=== PATIENT | male | born 1970 | race Caucasian/White ===

== ENCOUNTER 2022-06-12 08:10 | Emergency (ER) | payer MEDICAID, SELFPAY ==
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
[2022-06-12 08:23] VITALS: BP 128/89; PULSE 94
[2022-06-12 08:24] VITALS: BP 130/102; PULSE 100; RESP 18; TEMP 36.3; O2SAT 99; BMI 22.0
[2022-06-12 08:30] VITALS: BP 127/85; PULSE 94
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
--- NOTE | 2022-06-12 09:12 | PC.NURSE ---
called radiology to power share images to [facility]
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
--- NOTE | 2022-06-12 09:16 | PC.NURSE ---
Freida.Mckeon rounded on patient
[2022-06-12 09:30] VITALS: BP 116/81; PULSE 91; O2SAT 97
--- NOTE | 2022-06-12 10:24 | PC.NURSE ---
ashley rounding on pt
[2022-06-12 10:30] VITALS: BP 122/74; PULSE 95; RESP 18; O2SAT 96
--- NOTE | 2022-06-12 10:41 | PC.NURSE ---
EMS here to take patient to [facility]
--- NOTE | 2022-06-12 10:55 | PC.NURSE ---
Patient leaving facility with EMS
[2022-06-12 11:00] VITALS: BP 122/74; PULSE 69; RESP 16; TEMP 36.7
== END 2022-06-12 11:34 | disposition short-term general hospital (02) ==
PROVIDERS: Emergency Provider Student in an Organized Health Care Education/Training Program
DX: S42.351B Displaced comminuted fracture of shaft of humerus, right arm, initial encounter for open fracture (principal); F17.210 Nicotine dependence, cigarettes, uncomplicated; V49.50XA Passenger injured in collision with unspecified motor vehicles in traffic accident, initial encounter
CPT/HCPCS: 71045; 73060; 73080; 73090; 90715; 96360; 96365; 96367; 96368; 96372; 96374; 99285

== ENCOUNTER 2023-09-20 09:17 | Emergency (ER) | payer MEDICAID, SELFPAY ==
[2023-09-20 09:18] VITALS: BP 168/112; PULSE 88; RESP 18; TEMP 36.6; O2SAT 97; BMI 24.3
[2023-09-20 09:30] VITALS: BP 162/105; PULSE 78; RESP 18; TEMP 36.6; O2SAT 96
--- NOTE | 2023-09-20 10:11 | PC.NURSE ---
DR WU AT BEDSIDE
[2023-09-20 10:27] LABS: Basophils # 0.1 K/mm3 (0-0.2); Basophils % 0.8 % (0.1-2.0); Eosinophils # 0.3 K/mm3 (0.0-0.4); Hematocrit 41.5 % (42.0-52.0); Hemoglobin 15.1 g/dL (14.1-18.0); Lymphocytes # 2.5 K/mm3 (0.7-4.5); Lymphocytes % 31.5 % (10-50); Mean Corpuscular HGB Conc 36.4 g/dL (31.8-35.4); Mean Corpuscular Hemoglobin 35.9 pg (27.0-31.2); Mean Corpuscular Volume 98.6 fl (80-94); Mean Platelet Volume 7.9 fl (7.4-10.4); Monocytes # 0.5 K/mm3 (0.1-1.0); Monocytes % 6.5 % (1.7-9.3); Neutrophils # 4.5 K/mm3 (1.8-7.8); Neutrophils % 57.2 % (37.0-80.0); Platelet Count 250 K/mm3 (142-424); Red Cell Distribution Width 14.2 % (11.5-17.5); White Blood Count 7.8 K/mm3 (4.8-10.8)
--- NOTE | 2023-09-20 10:27 | PC.NURSE ---
PT TO CT
--- NOTE | 2023-09-20 10:33 | ED_ITS ---
Discharge Plan Disposition Patient Disposition: Left Against Medical Advice Referrals Follow up/Referrals: Provider,Referral, MD [Primary Care Provider] - See instructions Clinical Impressions Clinical Impression: Abscess, neck Instructions Patient Instructions: DI for Skin Abscess Print Language Print Language: Trinidadian Discharge ED Provider: Georgette Cage General Adult HPI General Chief complaint: Skin/Abscess/Foreign Body Stated complaint: knot on neck Time Seen by Provider: 09/20/23 09:30 Mode of Arrival: Ambulatory Source of Information: Patient Limitations: No Limitations Description of Symptoms (Recalled from ER Triage Doc. by RN): PT REPORTS INFECTED HAIR TO LEFT SIDE OF NECK. STATES HE POPPED AREA AND SITE IS SWOLLEN AND PAINFUL History of Present Illness HPI narrative: This patient is a 52-year-old male who denies significant past medical history presenting to the emergency department for evaluation with concern for an area of swelling on the front of his neck. He reports that he had an ingrown hair and popped this area, but since yesterday he has had worsened swelling and has a large lump on the front of his neck. He also states he feels nauseated. He denies any fevers, chest pain, shortness of breath, difficulty swallowing, stridor, or other concerns. Related Data Allergies Allergy/AdvReac Type Severity Reaction Status Date / Time No Known Allergies Allergy Verified 06/12/22 08:29 [facility] Disclaimer: The information contained in this section may have been updated after the patient was seen, as this information can be updated by other users. Social History Smoking Status: Current every day smoker alcohol intake: never current occupational status: employed Travel in the last 8 weeks: None ROS Obtained: Yes All systems reviewed & no additional complaints except as documented Physical Exam General General appearance: alert and in no apparent distress Head Head exam: atraumatic and normocephalic Eye Eye exam: Present normal appearance, PERRL and EOMI ENT ENT exam: Present normal exam, normal oropharynx, mucous membranes moist and normal external ear exam Neck Neck exam: Present full ROM, trachea midline and tenderness (Palpable area of fluctuance on the anterior neck with no significant surrounding erythema or warmth.); Absent meningismus or lymphadenopathy Chest Chest inspection: Present normal inspection and symmetric chest wall rise; Absent tenderness Respiratory Respiratory exam: Present normal lung sounds bilaterally; Absent respiratory distress, wheezes, stridor or accessory muscle use Cardiovascular Cardiovascular exam: Present regular rate and normal rhythm Abdominal Exam Abdominal exam: Present soft; Absent distention, tenderness or guarding Extremities Exam Extremities exam: Present normal inspection, full ROM and normal capillary refill; Absent tenderness or edema Back Exam Back exam: Present normal inspection and full ROM; Absent tenderness Neurological Exam Neurological exam: Present alert, oriented X3, CN II-XII intact and normal gait; Absent motor sensory deficit Psychiatric Psychiatric exam: Present normal affect and normal mood Skin Skin exam: Present warm and dry Medical Decision Making Medical Records Medical records reviewed: Yes I reviewed the patient's medical records. Yuval Inquiry Pt receiving controlled substance: No Vital Signs: 09/20/23 09:18 09/20/23 09:30 09/20/23 11:23 Temperature 97.8 F 97.8 F 0 F L Temperature Source Oral Oral Pulse Rate 78 0 L Pulse Rate [Radial] 88 Respiratory Rate 18 18 0 L Blood Pressure 162/105 H 0/0 L Blood Pressure [Left Arm] 168/112 H Blood Pressure Mean [Left Arm] 130 Blood Pressure Source Manual Cuff/ Auscultation Blood Pressure Source [Left Arm] Automatic Cuff Blood Pressure Position Sitting Blood Pressure Position [Left Arm] Sitting 02 Sat by Pulse Oximetry 97 96 Oxygen Delivery Method Room Air Room Air Lab Data Lab results reviewed: Yes I reviewed the patient's lab results. Lab Results 09/20/23 10:19: WBC 7.8, RBC 4.20 L, Hgb 15.1, Hct 41.5 L, MCV 98.6 H, MCH 35.9 H, MCHC 36.4 H, RDW 14.2, Plt Count 250, MPV 7.9, Neut % (Auto) 57.2, Lymph % (Auto) 31.5, [place] % (Auto) 6.5, Eos % (Auto) 4.0, Baso % (Auto) 0.8, Neut # (Auto) 4.5, Lymph # (Auto) 2.5, [place] # (Auto) 0.5, Eos # (Auto) 0.3, Baso # (Auto) 0.1, Sodium 140, Potassium 3.9, Chloride 110 H, Carbon Dioxide 25, Anion Gap 8.9, BUN 10, Creatinine 0.90, Estimated Creat Clear 103, Estimated GFR 89, Est GFR ( Amer) 108, Glucose 104 H, Calcium 9.8, Total Bilirubin 0.3, AST 21, ALT 18, Alkaline Phosphatase 105, Total Protein 7.0, Albumin 4.1, Globulin 2.9, Albumin/Globulin Ratio 1.4 09/20/23 10:19 09/20/23 10:19 Orders (Tests/Meds): ORDERS Category Date Time Status CT soft tissue neck w con Stat Cat Scan 09/20/23 10:13 Ordered CBC w/Auto Diff [Complete Blood Count Auto Diff] Stat Lab 09/20/23 10:19 Completed CMP [Comprehensive Metabolic Panel] Stat Lab 09/20/23 10:19 Completed Medical Decision Narrative: In summary, this patient is a 52-year-old male presenting to the Emergency Department for evaluation of an area of swelling on the front of his neck. Differential diagnoses considered include but are not limited to abscess, cellulitis, deep space infection. Ruling out the most morbid conditions drove assessment. On exam, the patient is well-appearing. He has no meningismus, significant lymphadenopathy, or other concerns. He does have a palpable area of fluctuance of his anterior/left neck at the level of his thyroid cartilage. Will obtain a CT scan with IV contrast to evaluate for deeper space infection and further assess safety to proceed with simple I&D. Workup included CBC, CMP, CT neck with contrast. Labs were obtained and are reassuring. Ultimately, before CT scan, patient decided that he did not want a CT scan and just wanted his neck lanced. I advised him that the safest option is to proceed with imaging to rule out proximity to any large blood vessels or extension into deep space infection, as there are a lot of important vascular structures in this area. Patient stated that does not necessary and he just wants us to stab it. I advised him that I feel that is high risk without obtaining imaging to further assess the abscess given the proximity to the important vascular structures. I advised that if a vascular structure is injured during procedure, he would be high risk for hemorrhage. He stated that he wants his IV out and wants to leave since we are incompetent. He became very verbally aggressive and chose to leave AGAINST MEDICAL ADVICE after risk versus benefit explained. He was deemed to be of sound mind and had decision making capacity at time of leaving AMA. Critical Care Critical Care Time Critical Care Time: No
[2023-09-20 10:35] LABS: Alanine Aminotransferase 18 U/L (12-78); Albumin Level 4.1 g/dl (3.5-5.0); Albumin/Globulin Ratio 1.4 (1.1-1.8); Alkaline Phosphatase 105 U/L (38-126); Anion Gap 8.9 mEq/L (5-15); Aspartate Amino Transferase 21 U/L (17-59); Bilirubin,Total 0.3 mg/dl (0.2-1.3); Blood Urea Nitrogen 10 mg/dl (9-20); Calcium 9.8 mg/dl (8.4-10.2); Carbon Dioxide 25 mmol/L (22.0-30.0); Chloride 110 mmol/L (98-107); Creatinine Clearance Estimated 103 mL/min (50-200); Estimated Glomerular Filt Rate 89 ml/min (>60); GFR (African American) 108 ML/MIN (>60); Globulin 2.9 g/dL (1.3-3.2); Glucose 104 mg/dl (74-100); Potassium 3.9 mmoL/L (3.5-5.1); Sodium 140 mmol/L (136-145)
--- NOTE | 2023-09-20 11:20 | PC.NURSE ---
PT TO CT
--- NOTE | 2023-09-20 11:22 | HMH.ITSTN ---
pt stated he did not want his CT with contrast and that he wanted his IV taken out and to leave. Relayed information to RN, patient taken back to ER room.
[2023-09-20 11:23] VITALS: BP 0/0; PULSE 0; RESP 0; TEMP -17.7; TEMP 0; O2SAT 0
--- NOTE | 2023-09-20 11:26 | PC.NURSE ---
[employer] REPORTS PT REFUSES CT SCAN, PT FEELS UNNECESSARY. DR WU AT BEDSIDE TO REEVALUATE PT AND READDRESS POC. PT STATES YOU'RE NOT GONNA BE IN MY NECK CUTTING AROUND, I DON'T NEED NO SCAN! DR WU EXPLAINING PROCEDURE AND POC TO PT AGAIN. PT STATES GET THIS IV OUT IM, LEAVING IV REMOVED. AMA FORM SIGNED, PT AMBULATORY OFF UNIT AT THIS TIME
== END 2023-09-20 11:25 | disposition left against medical advice (07) ==
PROVIDERS: Emergency Provider Emergency Medicine
DX: L02.11 Cutaneous abscess of neck (principal); R11.0 Nausea; F17.210 Nicotine dependence, cigarettes, uncomplicated; R45.4 Irritability and anger
CPT/HCPCS: 80053; 85025; 99283

== ENCOUNTER 2023-12-09 02:17 | Emergency (ER) | payer MEDICAID, SELFPAY ==
[2023-12-09] VITALS (10 sets, daily range): BP systolic 101–159; BP diastolic 64–103; PULSE 84–152; RESP 10–26; TEMP 36.6–36.9; O2SAT 95–100; BMI 24.3
--- NOTE | 2023-12-09 02:27 | ECG_ITS ---
APPROVED REPORT Exam: Resting ECG HR:166 bpm ECG Measurements Heart Rate 166 AXES QRSd 104 QRS 82 QT 285 T 68 QTc 376 Conclusion Tachycardia, appears to be sinus however P waves are obscured by baseline artifact, see repeat ECG for improved study and interpretation MODERATE ST DEPRESSION [0.05+ mV ST DEPRESSION] No STEMI Electronically signed by : BELEN RIOS, 12/09/2023 07:14:13
--- NOTE | 2023-12-09 02:31 | CT_ITS ---
PROCEDURE INFORMATION: Exam: CT Cervical Spine Without Contrast Exam date and time: 12/09/2023 2:59 AM Age: 53 years old Clinical indication: Neck pain; Additional info: Neck pain, hit head TECHNIQUE: Imaging protocol: Computed tomography of the cervical spine without contrast. Radiation optimization: All CT scans at this facility use at least one of these dose optimization techniques: automated exposure control; mA and/or kV adjustment per patient size (includes targeted exams where dose is matched to clinical indication); or iterative reconstruction. COMPARISON: CT HEAD/BRAIN WO CON 12/09/2023 2:57 AM FINDINGS: Bones: Suboptimal exam due to motion artifact. There is straightening of the cervical spine lordosis. No spondylolisthesis. Chronic remodeling of the inferior cervical spine vertebral bodies without evidence of vertebral body compression deformity. No evidence of acute displaced fracture. C4-C5 central disc herniation with anterior-posterior measurement of 3 mm. Disc osteophyte complex at C5-C6 and likely also at C6-C7. Degenerative intervertebral disc height loss at C5-C6 and C6-C7. Mild bilateral facet arthropathy. Lungs: Subtle right apical blebs. Soft tissues: Atherosclerotic calcification of the carotid arteries. IMPRESSION: 1. No evidence of acute fracture of the cervical spine. 2. Straightening of the cervical spine lordosis may be related to muscular spasm or patient positioning. 3. Degenerative change of the cervical spine. 4. Atherosclerotic calcification of the carotid arteries.
--- NOTE | 2023-12-09 02:31 | CT_ITS ---
PROCEDURE INFORMATION: Exam: CT Head Without Contrast Exam date and time: 12/09/2023 2:57 AM Age: 53 years old Clinical indication: Pain; Headache; Additional info: Headache, hit head TECHNIQUE: Imaging protocol: Computed tomography of the head without contrast. Radiation optimization: All CT scans at this facility use at least one of these dose optimization techniques: automated exposure control; mA and/or kV adjustment per patient size (includes targeted exams where dose is matched to clinical indication); or iterative reconstruction. COMPARISON: No relevant prior studies available. FINDINGS: Brain: There is a questionable left anterior frontal extra-axial hematoma which may also be related to calvarial streak artifact. No midline shift encephalomalacia of the left parietal lobe and smaller area of encephalomalacia of the dorsal left frontal lobe the vertex suggestive of prior ischemic insults Cerebral ventricles: No ventriculomegaly. Paranasal sinuses: Mucosal thickening of the ethmoid air cells. Small mucous retention cyst of the left maxillary sinus. Mastoid air cells: Visualized mastoid air cells are well aerated. Bones: No acute fracture. Soft tissues: Unremarkable. IMPRESSION: 1. Questionable left anterior frontal extra-axial hematoma which may also be related to calvarial streak artifact. Immediate repeat CT head is recommended. 2. Areas of encephalomalacia of the dorsal left frontal lobe and left parietal lobe consistent with prior chronic infarctions. 3. Chronic sinusitis. Findings were discussed with Dr. Concepcion 12/09/2023 2:29 am.
--- NOTE | 2023-12-09 02:31 | XR_ITS ---
PROCEDURE INFORMATION: Exam: XR Chest Exam date and time: 12/09/2023 2:41 AM Age: 53 years old Clinical indication: Pain; Chest pressure; Additional info: Chest pain TECHNIQUE: Imaging protocol: Radiologic exam of the chest. Views: 1 view. COMPARISON: CR XR CHEST PORTABLE 06/12/2022 9:05 AM FINDINGS: Lungs: Unremarkable. No consolidation. Pleural spaces: Unremarkable. No pleural effusion. No pneumothorax. Heart/Mediastinum: Unremarkable. No cardiomegaly. Bones/joints: Unremarkable. IMPRESSION: No acute findings.
[2023-12-09] MEDS: ASPIRIN 81MG CHEWABLE TABLET 324 MG PO (02:37)
[2023-12-09] MEDS: NITROGLYCERIN 0.4MG SL TABLET 0.4 MG SL (02:38)
[2023-12-09] MEDS: LACTATED RINGERS 1000ML 1,000 ML 999 ML IV (02:38)
--- NOTE | 2023-12-09 02:39 | CT_ITS ---
PROCEDURE INFORMATION: Exam: CT Lumbar Spine Without Contrast Exam date and time: 12/09/2023 3:04 AM Age: 53 years old Clinical indication: Low back pain; Additional info: Pain, med clearance TECHNIQUE: Imaging protocol: Computed tomography of the lumbar spine without contrast. Radiation optimization: All CT scans at this facility use at least one of these dose optimization techniques: automated exposure control; mA and/or kV adjustment per patient size (includes targeted exams where dose is matched to clinical indication); or iterative reconstruction. COMPARISON: CT LUMBAR SPINE WO CON 12/09/2023 3:04 AM FINDINGS: Bones/joints: No acute fracture. Normal alignment. No significant disc bulge or herniation. No severe spinal canal stenosis. No significant neural foraminal narrowing. Soft tissues: Unremarkable. IMPRESSION: No acute findings.
--- NOTE | 2023-12-09 02:39 | CT_ITS ---
PROCEDURE INFORMATION: Exam: CT Thoracic Spine Without Contrast Exam date and time: 12/09/2023 3:02 AM Age: 53 years old Clinical indication: Pain in thoracic spine; Additional info: Pain med clearance TECHNIQUE: Imaging protocol: Computed tomography of the thoracic spine without contrast. Radiation optimization: All CT scans at this facility use at least one of these dose optimization techniques: automated exposure control; mA and/or kV adjustment per patient size (includes targeted exams where dose is matched to clinical indication); or iterative reconstruction. COMPARISON: CT CERVICAL SPINE WO CON 12/09/2023 2:59 AM FINDINGS: Bones/joints: No acute fracture. Normal alignment. No significant disc bulge or herniation. No severe spinal canal stenosis. No significant neural foraminal narrowing. Soft tissues: Unremarkable. IMPRESSION: Unremarkable CT Spine.
[2023-12-09 02:40] LABS: Basophils # 0.1 K/mm3 (0-0.2); Basophils % 0.8 % (0.1-2.0); Eosinophils # 0.2 K/mm3 (0.0-0.4); Eosinophils % 1.9 % (0.1-12.0); Hematocrit 45.3 % (42.0-52.0); Hemoglobin 15.1 g/dL (14.1-18.0); Lymphocytes # 4.2 K/mm3 (0.7-4.5); Lymphocytes % 33.6 % (10-50); Mean Corpuscular HGB Conc 33.4 g/dL (31.8-35.4); Mean Corpuscular Volume 95.6 fl (80-94); Mean Platelet Volume 7.9 fl (7.4-10.4); Monocytes # 0.8 K/mm3 (0.1-1.0); Monocytes % 6.4 % (1.7-9.3); Neutrophils # 7.2 K/mm3 (1.8-7.8); Neutrophils % 57.3 % (37.0-80.0); Platelet Count 308 K/mm3 (142-424); Red Blood Count 4.74 M/mm3 (4.60-6.20); Red Cell Distribution Width 13.5 % (11.5-17.5); White Blood Count 12.5 K/mm3 (4.8-10.8)
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
[2023-12-09 02:44] LABS: Albumin Level 4.8 g/dl (3.5-5.0); Chloride 112 mmol/L (98-107); Potassium 3.5 mmoL/L (3.5-5.1); Sodium 145 mmol/L (136-145)
[2023-12-09 02:46] LABS: Blood Urea Nitrogen 13 mg/dl (9-20); Creatinine Clearance Estimated 81 mL/min (50-200); Estimated Glomerular Filt Rate 70 ml/min (>60); GFR (African American) 85 ML/MIN (>60)
--- NOTE | 2023-12-09 02:46 | CT_ITS ---
PROCEDURE INFORMATION: Exam: CT Abdomen And Pelvis Without Contrast Exam date and time: 12/09/2023 3:06 AM Age: 53 years old Clinical indication: Abdominal pain; Additional info: Low abd pain TECHNIQUE: Imaging protocol: Computed tomography of the abdomen and pelvis without contrast. Radiation optimization: All CT scans at this facility use at least one of these dose optimization techniques: automated exposure control; mA and/or kV adjustment per patient size (includes targeted exams where dose is matched to clinical indication); or iterative reconstruction. COMPARISON: CT LUMBAR SPINE WO CON 12/09/2023 3:04 AM FINDINGS: Liver: Normal. No mass. Gallbladder and biliary ducts: Normal. No calcified stones. No ductal dilation. Pancreas: Normal. No ductal dilation. Spleen: Normal. No splenomegaly. Adrenal glands: Normal. No mass. Kidneys and ureters: 3 mm stone upper pole collecting system and 2 mm stone lower pole collecting system of the left kidney. No hydronephrosis hydroureter or urolithiasis noted.. No hydronephrosis. Stomach and bowel: Unremarkable. No obstruction. No mucosal thickening. Appendix: No evidence of appendicitis. Intraperitoneal space: Unremarkable. No free air. No significant fluid collection. Vasculature: Unremarkable. No abdominal aortic aneurysm. Lymph nodes: Unremarkable. No enlarged lymph nodes. Urinary bladder: Moderately distended. Reproductive: Unremarkable as visualized. Bones/joints: Unremarkable. No acute fracture. Soft tissues: Unremarkable. IMPRESSION: 1. Moderately distended bladder of uncertain etiology, consider decompression. 2. Nonobstructing left-sided nephrolithiasis.
[2023-12-09 02:47] LABS: Alanine Aminotransferase 23 U/L (12-78); Albumin/Globulin Ratio 1.6 (1.1-1.8); Alkaline Phosphatase 102 U/L (38-126); Anion Gap 14.5 mEq/L (5-15); Aspartate Amino Transferase 25 U/L (17-59); Bilirubin,Total 0.4 mg/dl (0.2-1.3); Calcium 10.2 mg/dl (8.4-10.2); Carbon Dioxide 22 mmol/L (22.0-30.0); Glucose 130 mg/dl (74-100); Total Protein,Serum 7.8 g/dl (6.3-8.2)
[2023-12-09 03:01] LABS: Troponin I < 0.01 ng/ml (0.00-0.034)
[2023-12-09] MEDS: ACETAMINOPHEN 500MG TAB 1000 MG PO (03:13)
--- NOTE | 2023-12-09 03:26 | ECG_ITS ---
APPROVED REPORT Exam: Resting ECG HR:120 bpm ECG Measurements Heart Rate 120 AXES AZ 179 P 78 QRSd 104 QRS 104 QT 295 T 48 QTc 366 Conclusion SINUS TACHYCARDIA RIGHT AXIS DEVIATION [QRS AXIS > 100] No STEMI Electronically signed by : BELEN RIOS, 12/09/2023 07:13:48
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
[2023-12-09 03:43] LABS: Lipase 63 U/L (23-300)
[2023-12-09 03:46] LABS: Lactic Acid 1.6 mmol/L (0.7-2.1)
[2023-12-09 03:48] LABS: D-Dimer < 0.25 ug/mL (0.0-0.5)
[2023-12-09] MEDS: 0.9 % SODIUM CHLORIDE 1000ML 1,000 ML 999 ML IV (04:07)
[2023-12-09 04:52] LABS: Ethyl Alcohol 142 mg/dl (0-10)
[2023-12-09 05:02] LABS: Microscopic, Urine URINE MICROSCOPIC (MICROSCOPIC)
[2023-12-09 05:05] LABS: Appearance,Urine CLEAR (Clear); Bilirubin,Urine Negative (Negative); Blood, Urine Negative (Negative); Color,Urine YELLOW (Yellow); Glucose,Urine (UA) Negative (Negative); Ketones,Urine Negative (Negative); Leukocyte Esterase,Urine Negative (Negative); Nitrate,Urine Negative (Negative); Protein,Urine Negative (Negative)
[2023-12-09 05:15] LABS: Barbiturates Screen,Urine Negative ng/ml (<200)
[2023-12-09 05:16] LABS: Benzodiazepines Screen,Urine Negative ng/ml (<200)
[2023-12-09 05:17] LABS: Amphetamine/Metha Screen,Urine Negative ng/ml (<1000); Methadone Screen,Urine Negative ng/ml (<300)
[2023-12-09 05:18] LABS: Cannabinoid Screen,Urine Positive ng/ml (<50); Cocaine Screen,Urine Negative ng/ml (<300)
[2023-12-09 05:19] LABS: Opiate Screen,Urine Negative ng/ml (<300)
[2023-12-09 05:20] LABS: Phencyclidine Screen,Urine Negative ng/ml (<25); Squamous Epithelial Cell,Urine Occasional #/hpf (0-5)
[2023-12-09 05:52] LABS: Troponin I < 0.01 ng/ml (0.00-0.034)
--- NOTE | 2023-12-09 05:59 | CT_ITS ---
PROCEDURE INFORMATION: Exam: CT Head Without Contrast Exam date and time: 12/09/2023 6:17 AM Age: 53 years old Clinical indication: Pain; Headache; Additional info: Repeat due to L frontal lobe abnormality TECHNIQUE: Imaging protocol: Computed tomography of the head without contrast. Radiation optimization: All CT scans at this facility use at least one of these dose optimization techniques: automated exposure control; mA and/or kV adjustment per patient size (includes targeted exams where dose is matched to clinical indication); or iterative reconstruction. COMPARISON: CT HEAD/BRAIN WO CON 12/09/2023 2:57 AM FINDINGS: Brain: Encephalomalacia left frontal and parietal regions consistent with prior infarcts unchanged from prior examinations.. No hemorrhage. Unremarkable white matter. No mass effect. Cerebral ventricles: No ventriculomegaly. Paranasal sinuses: Visualized sinuses are unremarkable. No fluid levels. Mastoid air cells: Visualized mastoid air cells are well aerated. Bones: Unremarkable. No acute fracture. Soft tissues: Unremarkable. IMPRESSION: 1. No acute intracranial abnormality. 2. 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
== END 2023-12-09 06:51 ==
PROVIDERS: Emergency Provider Emergency Medicine
DX: Z00.8 Encounter for other general examination (principal); F10.929 Alcohol use, unspecified with intoxication, unspecified; M62.838 Other muscle spasm; N20.0 Calculus of kidney; R51.9 Headache, unspecified; M54.2 Cervicalgia; R07.9 Chest pain, unspecified; M54.50 Low back pain, unspecified; R20.2 Paresthesia of skin
CPT/HCPCS: 70450; 71045; 72125; 72128; 72131; 74176; 80053; 80307; 80320; 81001; 83605; 83690; 84484; 85025; 85378; 93005; 96360; 99284; J7030; J7120